=== PATIENT | male | born 1975 ===

== ENCOUNTER 2016-08-10 07:17 | Emergency (ER) | payer MEDICAID ==
[2016-08-10 07:30] VITALS: O2SAT 99
--- NOTE | 2016-08-10 07:45 | C.PDOC ---
History Of Present Illness 41 yr old male presents to the ER with complaints of left heel pain, s/p jumping out the window around 3am to retrieve his keys. Patient states his keys fell out and jumped out, landing on his heel. Patient states the pain is made worse with walking. Admits to drinking 2 beers yesterday but states he is not intoxicated. Denies falling, head injury, LOC, neck pain, back pain, leg pain, weakness or numbness. Time Seen by Provider: 08/10/16 07:31 Chief Complaint (Nursing): Lower Extremity Problem/Injury History Per: Patient History/Exam Limitations: language barrier (translated from Latvian by rosario Albright. ) Onset/Duration Of Symptoms: Other (3am) - Hip Description Of Injury: Other (landed bad while jumped out of the window of the first floor) Past Medical History Reviewed: Historical Data, Nursing Documentation, Vital Signs Vital Signs: Last Vital Signs Temp 98.1 F 08/10/16 08:55 Pulse 81 08/10/16 08:55 Resp 16 08/10/16 08:55 BP 130/81 08/10/16 08:55 Pulse Ox 99 08/10/16 09:12 Family History: States: No Known Family Hx - Social History Hx Alcohol Use: No Hx Substance Use: No - Immunization History Hx Tetanus Toxoid Vaccination: No Hx Influenza Vaccination: No Hx Pneumococcal Vaccination: No Review Of Systems Except As Marked, All Systems Reviewed And Found Negative. Musculoskeletal: Positive for: Other ((+) Left heel pain ). Negative for: Neck Pain, Back Pain, Leg Pain Neurological: Negative for: Weakness, Numbness Physical Exam - Physical Exam Appears: Well, Non-toxic, No Acute Distress Skin: Warm, Dry, No Rash Head: Atraumatic, Normacephalic Neck: Normal, Normal ROM, Supple Chest: Symmetrical, No Tenderness Cardiovascular: Rhythm Regular, No Murmur Respiratory: Normal Breath Sounds, No Rales, No Rhonchi, No Wheezing Back: Normal Inspection, No CVA Tenderness Extremity: No Calf Tenderness, Capillary Refill (<2), No Deformity, Other (Left Heel - mild swelling. (+)Pain to palpation. Left Ankle, Toes, Distal Foot - Full ROM. No tenderness. No Swelling. No pain with flexion and extention. Chau negative ) Pulses: Left Dorsalis Pedis: Normal, Right Dorsalis Pedis: Normal Neurological/Psych: Oriented x3, Normal Speech, Normal Motor, Normal Sensation ED Course And Treatment O2 Sat by Pulse Oximetry: 99 (RA) Pulse Ox Interpretation: Normal - Other Rad X-Ray - Left Ankle X-Ray: Interpreted by Me, Viewed By Me Interpretation: neg for acute fx or dislocation Reassessment Condition: Improved Medical Decision Making Medical Decision Making: PLAN: * X-Ray - Left Ankle * Motrin PO Disposition Counseled Patient/Family Regarding: Studies Performed, Diagnosis, Need For Followup, Rx Given - Disposition Referrals: Nicolas Vega III, MD [Staff Provider] - [facility] at [facility] [Outside] [facility] [Outside] Disposition: HOME/ ROUTINE Disposition Time: 08:51 Condition: STABLE Additional Instructions: FOLLOW UP WITH DR. VEGA IN 1-2 DAYS FOR RE-EVALUATION AND IN CLINIC. CRUTCHES FOR WALKING, NO WEIGHT BEARING. IF SYMPTOMS GET WORSE OR ANY NEW CONCERNING SYMPTOMS DEVELOP RETURN TO ED. 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 - Scribe Statement The provider has reviewed the documentation as recorded by the Scribe Oneida Gates All medical record entries made by the Scribe were at my direction and personally dictated by me. I have reviewed the chart and agree that the record accurately reflects my personal performance of the history, physical exam, medical decision making, and the department course for this patient. I have also personally directed, reviewed, and agree with the discharge instructions and disposition.
[2016-08-10 08:56] VITALS: BP 130/81; PULSE 81; RESP 16; TEMP 98.1
--- NOTE | 2016-08-10 10:00 | RAD ---
Left ankle three views History: Pain. Comparison: None available. Findings: Cortical lucency with adjacent sclerosis seen at the inferior calcaneus posteriorly. These findings are nonspecific however underlying nondisplaced fracture and or stress fracture deformity cannot be excluded. This may be better evaluated with MRI if clinically indicated. Ankle mortise is maintained. Talar dome is intact. No significant soft tissue swelling. Impression: Cortical lucency with adjacent sclerosis seen at the inferior calcaneus posteriorly. These findings are nonspecific however underlying nondisplaced fracture and or stress fracture deformity cannot be excluded. This may be better evaluated with MRI if clinically indicated.
--- NOTE | 2016-08-10 15:11 | C.PDOC ---
Time Seen by Provider: 08/10/16 07:31 Chief Complaint (Nursing): Lower Extremity Problem/Injury Past Medical History Vital Signs: Last Vital Signs Temp 98.1 F 08/10/16 08:55 Pulse 81 08/10/16 08:55 Resp 16 08/10/16 08:55 BP 130/81 08/10/16 08:55 Pulse Ox 99 08/10/16 15:11 Family History: States: No Known Family Hx - Social History Hx Alcohol Use: No Hx Substance Use: No - Immunization History Hx Tetanus Toxoid Vaccination: No Hx Influenza Vaccination: No Hx Pneumococcal Vaccination: No ED Course And Treatment O2 Sat by Pulse Oximetry: 99 (RA) Disposition - Disposition Referrals: [facility] [Outside] [facility] at [facility] [Outside] Nicolas Fitzpatrick III, MD [Staff Provider] - Disposition: HOME/ ROUTINE Disposition Time: 15:11 Condition: STABLE Additional Instructions: FOLLOW UP WITH DR. FITZPATRICK IN 1-2 DAYS FOR RE-EVALUATION AND IN CLINIC. CRUTCHES FOR WALKING, NO WEIGHT BEARING. IF SYMPTOMS GET WORSE OR ANY NEW CONCERNING SYMPTOMS DEVELOP RETURN TO ED. Prescriptions: Ibuprofen [Motrin Tab] 1 tab PO Q6H PRN #15 tab PRN Reason: Pain, Moderate (4-7) Instructions: Musculoskeletal Pain (ED) Forms: Gen Discharge Inst Occitan Print Language: SWEDISH - Clinical Impression Clinical Impression: Contusion of left heel Addendum Addendum: 08/10/16 15:10 Pt was recalled to place a posterior splint due to official xray report showing possible fracture.
== END 2016-08-10 09:09 | disposition home or self-care (01) ==
LOC: C.ER 07:17
DX: S90.32XA Contusion of left foot, initial encounter (principal); W17.89XA Other fall from one level to another, initial encounter; Y92.008 Other place in unspecified non-institutional (private) residence as the place of occurrence of the external cause